=== PATIENT | male | born 2000 | race Caucasian/White ===

== ENCOUNTER 2021-10-19 08:17 | Emergency (ER) | payer SELFPAY ==
[~2021-10-19] VITALS: Ht 182.9 cm; Wt 70.3 kg
[2021-10-19 08:42] VITALS: BP 130/81
[2021-10-19] MEDS ORDERED: BACI3.5O23 RIGHTEYE (09:11)
== END 2021-10-19 09:21 | disposition home or self-care (01) ==
LOC: ER 08:54
DX: H01.003 Unspecified blepharitis right eye, unspecified eyelid (principal)